=== PATIENT | female | born 1940 | race Two or more races ===

== ENCOUNTER 2024-08-02 18:40 | Inpatient (IN) | payer OTHER ==
[~2024-08-02] VITALS: Ht 154.9 cm; Wt 69.6 kg
--- NOTE | 2024-08-02 18:59 | ECG ---
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
--- NOTE | 2024-08-02 19:04 | ED.PDOC ---
GI ASSESSMENT HPI Comments 83-year-old female who came to emergency room due to a bleed. Patient has been constipated for the past 2-3 weeks, and whenever she defecates, she noted blackish stools. Earlier today, patient vomited blackish emesis. Patient states recently she feels weak, lethargic and fatigued with shortness a breath. She denies any abdominal pain and she denies any history of ulcers. Blood pressure was 102/62 mmHg upon arrival and slightly tachycardic Chief Complaint: GI Bleed Time Seen by MD: 19:03 Primary Care Provider: BARBARA Reviewed Notes: Nurses Notes Allergies: Coded Allergies: NO KNOWN ALLERGIES (Unverified , 03/17/24) Information Source: Patient Mode of Arrival: Ambulatory Timing: Days Duration: Intermittent Prehospital treatment: None Quality: None Vomitus: Coffee Grounds Stool: Black Severity: Moderate Recent: None Recent Hx of: Abdominal Surgery Pain Location: None Associated sign and symptoms: Constipation, Hematemesis, Melena Review of Systems REVIEW OF SYSTEMS: No fever, no chills, or fatigue HEENT: No sore throat, no earache, no congestion, no neck pain. Cardiac: No chest pain. No palpitations. Lungs: No shortness of breath, no cough. GI: Positive nausea, positive vomiting, no diarrhea, no constipation, no abdominal pain, positive dark colored stool : No dysuria, frequency, or urgency. No hematuria. Musculoskeletal: No joint pain , no joint swelling, no extremity edema. Skin: No rash, no itching. Neuro: No headache, no dizziness, positive generalized weakness Vital Signs Vital Signs Date Time Temp Pulse Resp B/P (MAP) Pulse Ox O2 Delivery O2 Flow Rate FiO2 08/02/24 22:40 97.4 105 21 103/46 97.4 08/02/24 19:44 98 08/02/24 19:44 Room Air* 0 21 Physical Exam General: Awake, alert and oriented. No acute distress. Skin: Skin in warm, dry and intact. Appropriate color for ethnicity. HEENT: The head is normocephalic and atraumatic. Conjunctivae are clear without exudates or hemorrhage. Conjunctiva pale. Sclera is non-icteric. EOM are intact. No signs of nystagmus. Eyelids are normal in appearance without swelling or lesions. Neck: The neck is supple with normal range of motion. No JVD. Cardiac: Heart rate and rhythm are normal. No murmurs, gallops, or rubs are auscultated. Respiratory: No signs of respiratory distress. Lung sounds are clear in all lobes bilaterally without rales, rhonchi, or wheezes. Abdominal: Abdomen is soft, non-tender without distention. Bowel sounds are present and normoactive in all four quadrants. Extremities: Upper and lower extremities are atraumatic in appearance without deformity or edema. Neurological: The patient is awake, alert and oriented to person, place, and time with normal speech. Speech is clear. There is no facial asymmetry. Psychiatric: Appropriate mood and affect. Good judgement and insight. Past Medical History PAST MEDICAL HISTORY: HTN Surgical History: Hysterectomy LENS ASSORTER History: Denies all LENS ASSORTER Hx Family History Family History: Reviewed,noncontributory to illness Social History Smoker: Non-Smoker Alcohol: Denies ETOH Use Drugs: Denies Drug Use Lives In: Home EKG EKG : Pulse Rate (adult): 93 Cardiac Rhythm: NSR Comments Ventricular premature complex. No STEMI Was a procedure done? Was a procedure done?: No GI differential Dx Differential Diagnosis: Constipation, Diverticular disease, Gastritis/PUD, Gastroenteritis, GI hemorrhage, UTI, Urolithiasis, Dehydration, Anemia X-Ray, Labs, Meds, VS Vital Signs Date Time Temp Pulse Resp B/P (MAP) Pulse Ox O2 Delivery O2 Flow Rate FiO2 08/02/24 22:40 97.4 105 21 103/46 97.4 08/02/24 19:44 98.7 99 16 100/66 (77) 98 98.7 08/02/24 19:44 Room Air* 0 21 08/02/24 19:04 93 08/02/24 18:58 99 08/02/24 18:51 98.4 112 16 102/62 (75) 97 98.4 Lab Test 08/02/24 19:03 Range/Units White Blood Count 9.3 4.4-10.8 10^3/uL Red Blood Count 1.78 L 4.0-5.20 10^6/uL Hemoglobin 4.1 *L 12.2-16.2 g/dL Hematocrit 13.0 L 36.0-46.0 % Mean Corpuscular Volume 72.9 L 80.0-100.0 fL Mean Corpuscular Hemoglobin 22.8 L 28.0-32.0 pg Mean Corpuscular Hemoglobin Concent 31.3 L 32.0-36.0 g/dL Red Cell Distribution Width 19.2 H 11.8-14.3 % Platelet Count 592 H 140-450 10^3/uL Mean Platelet Volume 6.2 L 6.9-10.8 fL Neutrophils (%) (Auto) 81.9 H 37.0-80.0 % Lymphocytes (%) (Auto) 11.4 10.0-50.0 % Monocytes (%) (Auto) 5.2 0.0-12.0 % Eosinophils (%) (Auto) 0.4 0.0-7.0 % Basophils (%) (Auto) 1.1 0.0-2.0 % Neutrophils # (Auto) 7.7 1.6-8.6 10 ^3/uL Lymphocytes # (Auto) 1.1 0.4-5.4 10 ^3/uL Monocytes # (Auto) 0.5 0-1.3 10 ^3/uL Eosinophils # (Auto) 0 0-0.8 10 ^3/uL Basophils # (Auto) 0.1 0-0.2 10 ^3/uL Nucleated Red Blood Cells 0.1 % Prothrombin Time 10.9 9.3-11.8 sec Prothrombin Time INR 1.03 0.9-1.15 Sodium Level 137 136-145 mmol/L Potassium Level 3.5 3.5-5.1 mmol/L Chloride Level 103 98-107 mmol/L Carbon Dioxide Level 24 20-31 mmol/L Anion Gap 10 5-15 Blood Urea Nitrogen 37 H 9-23 mg/dL Creatinine 0.94 0.550-1.02 mg/dL Glomerular Filtration Rate Calc 60 >90 mL/min BUN/Creatinine Ratio 39.4 H 10.0-20.0 Serum Glucose 115 H 74-106 mg/dL Calcium Level 10.0 8.7-10.4 mg/dL Total Bilirubin 0.2 0.2-1.0 mg/dL Aspartate Amino Transferase (AST) 21 13-40 U/L Alanine Aminotransferase (ALT) 17 7-40 U/L Alkaline Phosphatase 231 H 46-116 U/L Troponin I High Sensitivity 12 </=34 ng/L Total Protein 6.7 5.7-8.2 g/dL Albumin 3.8 3.2-4.8 g/dL Current Medications Medications (Trade) Dose Ordered Sig/Ann Marie Route Start Time Stop Time Status Last Admin Pantoprazole Sodium (Protonix) 40 mg ONCE ONCE IV 08/02/24 19:00 08/02/24 19:01 DC 08/02/24 19:54 : 1940OC: ERROOM / BED: / AGE / SEX: 83 / F ADM STATUS: REG ER SERVICE 51 ORDERING PHYSICIAN: YAAKOV ARTHUR MD PROCEDURE(s): ABPLIV - CT AB PEL WITH IV CON ONLY REASON: Suspected upper GI bleed ORDER NUMBER(s): [id number], ACCESSION NUMBER(s): [id number] Exam: CT CT AB PEL WITH IV CON ONLY History: Suspected upper GI bleed Comparison Study: None Contrast: Type of contrast: Omni 300 Contrast injected: 100 mL Contrast wasted: 0 TECHNIQUE: A digital resource room special education teacher image was obtained. During the uneventful, intravenous administration of contrast material, multislice data acquisition was obtained through the abdomen and pelvis. The data set was subsequently reconstructed into axial images. Images were reviewed on a work station using a combination of axial and multiplanar using a variety of window levels and settings. Radiation Dose Information: CT Dose: CTDI volume is 13.77 mGy. Dose-length product is 726.87 mGy*cm FINDINGS: Lung Bases: No acute or significant lung base finding. Bronchiectasis in both lung bases. Normal heart size. No pleural or pericardial effusion. Liver: The liver is normal in size. No focal lesions. Normal hepatic vascular enhancement. Gallbladder and Biliary Tree: Unremarkable Spleen: Unremarkable Pancreas: The pancreas is normal in appearance without focal lesions or abnormal enhancement. Adrenal Glands: Unremarkable Kidneys: Kidneys demonstrate normal symmetric enhancement without focal lesions, calculi or hydronephrosis. Bladder: Unremarkable Bowel: The stomach is grossly normal in appearance. Small bowel and colon are normal in caliber and distribution. The appendix is not visualized; however, no secondary findings of acute appendicitis identified. Ascites: Absent Lymphadenopathy: No mesenteric, retroperitoneal or periportal lymphadenopathy. Abdominal Wall and Mesentery: Unremarkable. Vasculature: The visualized abdominal aorta is normal in size and caliber. Abd ominal and pelvic vessels demonstrate normal enhancement. Aneurysmal dilatation of the right iliac artery measuring Pelvic Organs: Unremarkable Musculoskeletal: No aggressive focal bony lesions, acute fractures or dislocation. Soft tissues: Unremarkable. IMPRESSION: 1. 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 HS:Y All CT scans at this medical facility are performed using dose modulation techniques as appropriate to a performed exam including the following: Automated exposure control was utilized; adjustment of the MA and/or KV according to patient size; and use of iterative reconstruction technique. Time of 1ST Reevaluation: 18:56 Reevaluation 1ST: Unchanged Patient Education/Counseling: Other (Need for admission) Family Education/Counseling: No Family Present Departure 1 Departure Time of Disposition: 23:54 Impression: Primary Impression: GI bleed Additional Impression: Severe anemia Disposition: ADMITTED INPATIENT Condition: Stable Comments 83-year-old female who presented with coffee-ground emesis found to have severe anemia. Blood transfusion initiated in the emergency department. Patient admitted to hospitalist service for further treatment, evaluation and monitoring. Extensive evaluation was performed in attempt to identify or rule out: (See differential diagnosis section) The following tests were ordered, and results were reviewed by me and discussed with patient: (See diagnostic results section) The following test were independently interpreted by me: EKG I reviewed and agreed with the following test results read by other providers: N/A I reviewed the following notes from the pt's past medical encounters: N/A Additional information was gathered from interviewing the following independent historians: N/A Discussion of management or test interpretation with external physician/other qualified health rn care manager: N/A Addressed an acute or chronic illness that poses a threat to life or bodily function: Severe anemia, gastrointestinal bleeding Decision regarding hospitalization or escalation of hospital level of care: Risk and benefits of admission for further treatment of patient's condition was considered. Due to patient's current clinical condition, high risk of decline and poor outcome if discharged and need for further inpatient management and monitoring, patient will be admitted to the hospital. Discussed with patient. Drug therapy requiring intensive monitoring for toxicity: N/A Parenteral controlled substances: N/A Decision regarding elective major surgery with identified patient or procedure risk factors: N/A Decision regarding emergency major surgery: N/A Decision not to resuscitate or to de-escalate care because of poor prognosis: N/A Diagnosis or treatment significantly limited by social determinants of health: N/A Critical Care Note Critical Care Time?: Yes (35 min-critical care time only) Critical care comment: severe anemia Stability Stability form required: No Heart Score Heart Score: Heart Score Response (Comments) Value History N/A 0 EKG N/A 0 Age N/A 0 Risk Factors N/A 0 Troponin N/A 0 Total 0 I personally scribed for YAAKOV ARTHUR MD ([email or web address]) on 08/02/24 at 19:04. Electronically submitted by Mark Schneider ([employer]). I personally scribed for YAAKOV ARTHUR MD ([email or web address]) on 08/02/24 at 19:38. Electronically submitted by Mark Schneider ([employer]). YAAKOV ARTHUR MD August 02, 2024 19:04
[2024-08-02 19:19] LABS: Basophils # (auto) 0.1 10 ^3/uL (0-0.2); Basophils % (auto) 1.1 % (0.0-2.0); Eosinophils # (auto) 0 10 ^3/uL (0-0.8); Eosinophils % (auto) 0.4 % (0.0-7.0); Lymphocytes # (auto) 1.1 10 ^3/uL (0.4-5.4); Lymphocytes % (auto) 11.4 % (10.0-50.0); Mean Corpuscular Hemoglobin 22.8 pg (28.0-32.0); Mean Corpuscular Hgb Conc. 31.3 g/dL (32.0-36.0); Mean Corpuscular Volume 72.9 fL (80.0-100.0); Monocytes # (auto) 0.5 10 ^3/uL (0-1.3); Monocytes % (auto) 5.2 % (0.0-12.0); Neutrophils # (auto) 7.7 10 ^3/uL (1.6-8.6); Neutrophils % (auto) 81.9 % (37.0-80.0); Nucleated Red Blood Cells % 0.1 %; Platelet Count (auto) 592 10^3/uL (140-450); Red Blood Cells 1.78 10^6/uL (4.0-5.20); Red Cell Distribution Width 19.2 % (11.8-14.3); White Blood Cell 9.3 10^3/uL (4.4-10.8)
[2024-08-02 19:21] LABS: Hemoglobin 4.1 g/dL (12.2-16.2)
[2024-08-02 19:33] LABS: INR 1.03 (0.9-1.15); Prothrombin Time 10.9 sec (9.3-11.8)
[2024-08-02 19:37] LABS: Alanine Aminotransferase 17 U/L (7-40); Albumin 3.8 g/dL (3.2-4.8); Anion Gap 10 (5-15); Aspartate Aminotransferase 21 U/L (13-40); BUN/Creatinine Ratio 39.4 (10.0-20.0); Carbon Dioxide 24 mmol/L (20-31); Chloride 103 mmol/L (98-107); Sodium 137 mmol/L (136-145); Total Protein 6.7 g/dL (5.7-8.2)
[2024-08-02 19:49] LABS: Alkaline Phosphatase 231 U/L (46-116); Bilirubin, Total 0.2 mg/dL (0.2-1.0); Blood Urea Nitrogen 37 mg/dL (9-23); Glucose 115 mg/dL (74-106); Potassium 3.5 mmol/L (3.5-5.1)
[2024-08-02] MEDS: PANTOPRAZOLE 40 MG/10 ML VIAL INJ IV ONE (19:54)
[2024-08-02] MEDS ORDERED: ONDANSETRON HCL 4 MG/2 ML VIAL IV PRN (21:00)
[2024-08-02] MEDS ORDERED: HYDROcodone-ACET 5/325MG TAB PO PRN (21:00)
[2024-08-02] MEDS ORDERED: DOCUSATE SOD 100 MG CAP PO PRN (21:00)
[2024-08-02] MEDS ORDERED: ACETAMINOPHEN 325 MG TAB PO PRN (21:00)
[2024-08-02] MEDS: IOHEXOL 300 MG/ML 100ML BOTTLE IJ ONE (21:18)
--- NOTE | 2024-08-02 22:11 | DVH ---
Exam: CT CT AB PEL WITH IV CON ONLY History: Suspected upper GI bleed Comparison Study: None Contrast: Type of contrast: Omni 300 Contrast injected: 100 mL Contrast wasted: 0 TECHNIQUE: A digital mural painter image was obtained. During the uneventful, intravenous administration of c ontrast material, multislice data acquisition was obtained through the abdomen and pelvis. The data s et was subsequently reconstructed into axial images. Images were reviewed on a work station using a c ombination of axial and multiplanar using a variety of window levels and settings. Radiation Dose Information: CT Dose: CTDI volume is 13.77 mGy. Dose-length product is 726.87 mGy*cm FINDINGS: Lung Bases: No acute or significant lung base finding. Bronchiectasis in both lung bases. Normal hea rt size. No pleural or pericardial effusion. Liver: The liver is normal in size. No focal lesions. Normal hepatic vascular enhancement. Gallbladder and Biliary Tree: Unremarkable Spleen: Unremarkable Pancreas: The pancreas is normal in appearance without focal lesions or abnormal enhancement. Adrenal Glands: Unremarkable Kidneys: Kidneys demonstrate normal symmetric enhancement without focal lesions, calculi or hydroneph rosis. Bladder: Unremarkable Bowel: The stomach is grossly normal in appearance. Small bowel and colon are normal in caliber and d istribution. The appendix is not visualized; however, no secondary findings of acute appendicitis al ntified. Ascites: Absent Lymphadenopathy: No mesenteric, retroperitoneal or periportal lymphadenopathy. Abdominal Wall and Mesentery: Unremarkable. Vasculature: The visualized abdominal aorta is normal in size and caliber. Abdominal and pelvic vess els demonstrate normal enhancement. Aneurysmal dilatation of the right iliac artery measuring Pelvic Organs: Unremarkable Musculoskeletal: No aggressive focal bony lesions, acute fractures or dislocation. Soft tissues: Unremarkable. IMPRESSION: 1. 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 HS:Y All CT scans at this medical facility are performed using dose modulation techniques as appropriate t o a performed exam including the following: Automated exposure control was utilized; adjustment of th e MA and/or KV according to patient size; and use of iterative reconstruction technique.
[2024-08-02 22:40] VITALS: BP 103/46; PULSE 105; RESP 21; TEMP 97.4
--- NOTE | 2024-08-02 22:53 | DVHHP2 ---
History of Present Illness Reason for Visit: Severe anemia History of Present Illness The patient is a 83-year-old female with past medical history of hypertension, hyperlipidemia, and seizure who presented to [facility] ED with complaint of black tarry stool. Patient reports she has been constipated for the past 2-3 weeks, noted blackish stools, vomiting blackish emesis, feeling weak, lethargic, fatigue with shortness of breaths, getting worse today that prompted this visit. Patient was seen and evaluated in the ED, laboratory data shows WBC 9.3, hemoglobin 4.1, hematocrit 13.0, platelets 592, sodium 137, potassium 3.5, BUN 37, creatinine 0.94, glucose 115, troponin 12. 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 Patient will receive 2 units of PRBC, please see medication orders section in the computer. On my assessment, patient denied chest pain, no headache, no dizziness, no diaphoresis, no shortness of breath, no nausea, no vomiting, no fever, no chills. Patient was admitted for further evaluation and medical management. Past Medical History HTN, HLD, pseudo-seizure Past Surgical History Hysterectomy Family History Reviewed, noncontributory to the management of this case. Past Social History The patient lives at home, denies smoking, alcohol or illicit drugs abuse. Review of Systems Constitutional: Yes: Weakness, Other (Fatigue); No: Fever, Chills, Sweats, Malaise Eyes: No: Pain, Vision change, Conjunctivae inflammation, Eyelid inflammation, Other, Redness ENT: No: Ear pain, Ear discharge, Nose pain, Nose discharge, Nose congestion, Mouth pain, Mouth swelling, Throat pain, Throat swelling, Other Respiratory: No: Cough, Dry, Shortness of breath, SOB with excertion, Wheezing, Hemoptysis, Pleuritic Pain, Sputum, Wheezing, Other Cardiovascular: No: Chest Pain, Palpitations, Orthopnea, Paroxysmal Noc. Dyspnea, Edema, Lt Headedness, Other Gastrointestinal: Vomiting; No: Nausea, Abdominal Pain, Diarrhea, Constipation, Melena, Hematochezia, Other Genitourinary: No Dysuria, No Frequency, No Incontinence, No Hematuria, No Retention, No Other Musculoskeletal: No: other, neck pain, shoulder pain, arm pain, back pain, hand pain, leg pain, foot pain Skin: No: Rash, Lesions, Jaundice, Bruising, Other Neurological: No: Weakness, Numbness, Incoordination, Change in speech, Confusion, Seizures, Other Allergies: Coded Allergies: NO KNOWN ALLERGIES (Unverified , 03/17/24) Medications Current Medications Medications Dose Ordered Sig/Ann Marie Route Start Time Stop Time Status Last Admin Dose Admin Pantoprazole Sodium 40 mg BID IV 08/02/24 22:00 Hydralazine HCl 10 mg Q6HP PRN IV 08/02/24 21:00 Atorvastatin Calcium 20 mg HS PO 08/02/24 22:00 Levetiracetam 100 ml @ 400 mls/hr BID IV 08/02/24 22:00 Sodium Chloride 1,000 ml @ 60 mls/hr [id number] IV 08/02/24 21:00 Acetaminophen/ Hydrocodone Bitart 1 tab Q4HP PRN PO 08/02/24 21:00 Ondansetron HCl 4 mg Q4HP PRN IV 08/02/24 21:00 Docusate Sodium 100 mg BIDPRN PRN PO 08/02/24 21:00 Acetaminophen 650 mg Q6HP PRN PO 08/02/24 21:00 Exam Vital Signs Vital Signs Date Time Temp Pulse Resp B/P (MAP) Pulse Ox O2 Delivery O2 Flow Rate FiO2 08/02/24 22:40 97.4 105 21 103/46 97.4 08/02/24 19:44 98 08/02/24 19:44 Room Air* 0 21 General Appearance: Alert, Oriented X3, Cooperative, No acute distress HEENT: Atraumatic, PERRLA, EOMI, Mucous membr. moist/pink Respiratory: Clear to auscultation, Normal air movement Cardiovascular: Regular rate, Normal S1, Normal S2, No murmurs Abdominal: Normal bowel sounds, Soft, No tenderness, No hepatospenomegaly, No masses Extremities: No clubbing, No cyanosis, No edema, Normal pulses, No tenderness/swelling Skin: No rashes, No breakdown, No significant lesion Neuro: Normal speech, Normal tone, Sensation intact, Cranial nerves 3-12 NL, Reflexes 2+, Other (Generalized weakness) Psych/Mental Status: Mental status NL, Mood NL Labs/Xrays Labs Test 08/02/24 19:03 Range/Units White Blood Count 9.3 4.4-10.8 10^3/uL Red Blood Count 1.78 L 4.0-5.20 10^6/uL Hemoglobin 4.1 *L 12.2-16.2 g/dL Hematocrit 13.0 L 36.0-46.0 % Mean Corpuscular Volume 72.9 L 80.0-100.0 fL Mean Corpuscular Hemoglobin 22.8 L 28.0-32.0 pg Mean Corpuscular Hemoglobin Concent 31.3 L 32.0-36.0 g/dL Red Cell Distribution Width 19.2 H 11.8-14.3 % Platelet Count 592 H 140-450 10^3/uL Mean Platelet Volume 6.2 L 6.9-10.8 fL Neutrophils (%) (Auto) 81.9 H 37.0-80.0 % Lymphocytes (%) (Auto) 11.4 10.0-50.0 % Monocytes (%) (Auto) 5.2 0.0-12.0 % Eosinophils (%) (Auto) 0.4 0.0-7.0 % Basophils (%) (Auto) 1.1 0.0-2.0 % Neutrophils # (Auto) 7.7 1.6-8.6 10 ^3/uL Lymphocytes # (Auto) 1.1 0.4-5.4 10 ^3/uL Monocytes # (Auto) 0.5 0-1.3 10 ^3/uL Eosinophils # (Auto) 0 0-0.8 10 ^3/uL Basophils # (Auto) 0.1 0-0.2 10 ^3/uL Nucleated Red Blood Cells 0.1 % Prothrombin Time 10.9 9.3-11.8 sec Prothrombin Time INR 1.03 0.9-1.15 Sodium Level 137 136-145 mmol/L Potassium Level 3.5 3.5-5.1 mmol/L Chloride Level 103 98-107 mmol/L Carbon Dioxide Level 24 20-31 mmol/L Anion Gap 10 5-15 Blood Urea Nitrogen 37 H 9-23 mg/dL Creatinine 0.94 0.550-1.02 mg/dL Glomerular Filtration Rate Calc 60 >90 mL/min BUN/Creatinine Ratio 39.4 H 10.0-20.0 Serum Glucose 115 H 74-106 mg/dL Calcium Level 10.0 8.7-10.4 mg/dL Total Bilirubin 0.2 0.2-1.0 mg/dL Aspartate Amino Transferase (AST) 21 13-40 U/L Alanine Aminotransferase (ALT) 17 7-40 U/L Alkaline Phosphatase 231 H 46-116 U/L Troponin I High Sensitivity 12 </=34 ng/L Total Protein 6.7 5.7-8.2 g/dL Albumin 3.8 3.2-4.8 g/dL PATIENT: RITA LANGLEY ACCT: [id number] UNIT: [id number] : 1940 LOC: ER ROOM / BED: / AGE / SEX: 83 / F ADM STATUS: REG ER SERVICE 51 ORDERING PHYSICIAN: YAAKOV ARTHUR MD PROCEDURE(s): ABPLIV - CT AB PEL WITH IV CON ONLY REASON: Suspected upper GI bleed ORDER NUMBER(s): [id number], ACCESSION NUMBER(s): [id number] Exam: CT CT AB PEL WITH IV CON ONLY History: Suspected upper GI bleed Comparison Study: None Contrast: Type of contrast: Omni 300 Contrast injected: 100 mL Contrast wasted: 0 TECHNIQUE: A digital religion teacher image was obtained. During the uneventful, intravenous administration of contrast material, multislice data acquisition was obtained through the abdomen and pelvis. The data set was subsequently reconstructed into axial images. Images were reviewed on a work station using a combination of axial and multiplanar using a variety of window levels and settings. Radiation Dose Information: CT Dose: CTDI volume is 13.77 mGy. Dose-length product is 726.87 mGy*cm FINDINGS: Lung Bases: No acute or significant lung base finding. Bronchiectasis in both lung bases. Normal heart size. No pleural or pericardial effusion. Liver: The liver is normal in size. No focal lesions. Normal hepatic vascular enhancement. Gallbladder and Biliary Tree: Unremarkable Spleen: Unremarkable Pancreas: The pancreas is normal in appearance without focal lesions or abnormal enhancement. Adrenal Glands: Unremarkable Kidneys: Kidneys demonstrate normal symmetric enhancement without focal lesions, calculi or hydronephrosis. Bladder: Unremarkable Bowel: The stomach is grossly normal in appearance. Small bowel and colon are normal in caliber and distribution. The appendix is not visualized; however, no secondary findings of acute appendicitis identified. Ascites: Absent Lymphadenopathy: No mesenteric, retroperitoneal or periportal lymphadenopathy. Abdominal Wall and Mesentery: Unremarkable. Vasculature: The visualized abdominal aorta is normal in size and caliber. Abdominal and pelvic vessels demonstrate normal enhancement. Aneurysmal dilatation of the right iliac artery measuring Pelvic Organs: Unremarkable Musculoskeletal: No aggressive focal bony lesions, acute fractures or dislocation. Soft tissues: Unremarkable. IMPRESSION: 1. 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 Assessment/Plan Assessment/Plan Severe anemia Gastrointestinal hemorrhage Generalized weakness Plan 1. Admit to telemetry unit 2. Breathing treatment 3. Pain control management 4. Management of fluids and electrolytes 5. Consultation for hospitalist 6. Diagnostic tests abdomen/pelvis CT 7. DVT prophylaxis-on SCDs 8. Repeat labs CBC, CMP in a.m. 9. Continue with current medical management 10. Treatment plan discussed with patient and RN. Patient verbalized unders tanding. Plan discussed with: Patient, Other (RN) My Orders Orders - REYNA TUCKER DNP Procedure Category Date Status Time * Gi Dvh Box Coverer Hand CONS 08/02/24 Transmitted 20:50 Pantoprazole PHA 08/02/24 In Process (Protonix) 22:00 Hydralazine Injection PHA 08/02/24 In Process (Apresoline Inject 21:00 Atorvastatin (Lipitor) PHA 08/02/24 In Process 22:00 Levetiracetam 500 PHA 08/02/24 In Process Mg/100ml (Levetiraceta 22:00 Allergies [place] 08/02/24 In Process 20:50 Code Status CODE 08/02/24 Transmitted 20:50 Sodium Chloride 0.9% PHA 08/02/24 In Process 21:00 Oxygen Per Hour RT 08/02/24 Transmitted 20:50 Hydrocodone-Acet PHA 08/02/24 In Process 5/325mg Tab ([place] 21:00 Ondansetron Hcl PHA 08/02/24 In Process (Zofran) 21:00 Docusate Sodium PHA 08/02/24 In Process Capsule (Colace 21:00 Fall Risk Precautions [place] 08/02/[address] 20:50 Complete Blood Count LAB 08/03/24 Verified 04:00 Comprehensive LAB 08/03/24 Verified Metabolic Panel 04:00 Cardiac DIET 08/03/24 Transmitted Diet-2gna,Lofat,Lochol Breakfast Condition: Serious [place] 08/02/24 In Process 20:50 Acetaminophen Tablet PHA 08/02/24 In Process (Tylenol Tablet) 21:00 Maintain Bed Rest [facility] 08/02/24 In Process 20:50 Sequential [facility] 08/02/24 In Process Compression Device Admit ADMIT 08/02/24 Verified 22:52 Nitroglycerin [facility] 08/02/24 Verified Sublingual (Ntrostat 23:00 Morphine Sulfate [facility] 08/02/24 Verified Injection 23:00 Notify Md Of Changes [facility] 08/02/24 Verified From Base 22:52 Burr Sander For [facility] 08/02/24 Verified 24 Hours 22:52 Emergency Dysrhythmia [facility] 08/02/24 Verified Protocol 22:52 Rhythm Strips Once [facility] 08/02/24 Verified Every Shift 22:52 Oxygen By Nasal RT 08/02/24 Verified Cannula 22:52 Problem List: (1) Severe anemia (2) Gastrointestinal hemorrhage (3) Generalized weakness Date of Service: August 02, 2024 Billing Provider: REYNA TUCKER DNP Common Visit Codes: [id number] INP/OBS CARE (HIGH) REYNA TUCKER DNP August 02, 2024 22:53
[2024-08-02 23:00] VITALS: RESP 18; O2SAT 98
[2024-08-02] MEDS ORDERED: NITROGLYCERIN 0.4 MG SL TAB SL PRN (23:00)
[2024-08-02] MEDS ORDERED: MORPHINE SULFATE INJ 2 MG/ml SYRG IV PRN (23:00)
[2024-08-02 23:05] VITALS: BP 112/47; PULSE 100; RESP 17; TEMP 98.5
[2024-08-03] VITALS (14 sets, daily range): BP systolic 105–124; BP diastolic 46–64; PULSE 80–103; RESP 16–20; TEMP 97.6–98.2; O2SAT 92–99
[2024-08-03] MEDS: ATORVASTATIN 20 MG TAB PO SCH (02:12)
[2024-08-03] MEDS: PANTOPRAZOLE 40 MG/10 ML VIAL INJ IV SCH (02:12)
[2024-08-03] MEDS: levETIRAcetam 500 mg/100ml 100 ML IV SCH (02:20)
[2024-08-03] MEDS ORDERED: LEVE500T3 PO (02:56)
[2024-08-03] MEDS ORDERED: LOSA-535 PO (02:56)
[2024-08-03] MEDS ORDERED: FURO20TA4 PO (02:56)
[2024-08-03] MEDS ORDERED: ATOR20TA50 PO (02:56)
[2024-08-03] MEDS: SODIUM CHLORIDE 0.9% 1,000 ML IV SCH (06:07)
[2024-08-03 08:01] LABS: Basophils # (auto) 0.1 10 ^3/uL (0-0.2); Basophils % (auto) 0.6 % (0.0-2.0); Eosinophils # (auto) 0.2 10 ^3/uL (0-0.8); Eosinophils % (auto) 1.6 % (0.0-7.0); Hematocrit 21.8 % (36.0-46.0); Hemoglobin 7.1 g/dL (12.2-16.2); Lymphocytes # (auto) 1.2 10 ^3/uL (0.4-5.4); Lymphocytes % (auto) 12.2 % (10.0-50.0); Mean Corpuscular Hemoglobin 26.1 pg (28.0-32.0); Mean Corpuscular Hgb Conc. 32.8 g/dL (32.0-36.0); Mean Corpuscular Volume 79.6 fL (80.0-100.0); Monocytes # (auto) 0.9 10 ^3/uL (0-1.3); Monocytes % (auto) 9.4 % (0.0-12.0); Neutrophils # (auto) 7.4 10 ^3/uL (1.6-8.6); Neutrophils % (auto) 76.2 % (37.0-80.0); Nucleated Red Blood Cells % 0.1 %; Platelet Count (auto) 455 10^3/uL (140-450); Red Blood Cells 2.74 10^6/uL (4.0-5.20); Red Cell Distribution Width 20.2 % (11.8-14.3); White Blood Cell 9.7 10^3/uL (4.4-10.8)
[2024-08-03 08:23] LABS: Alanine Aminotransferase 15 U/L (7-40); Albumin 3.6 g/dL (3.2-4.8); Anion Gap 11 (5-15); Aspartate Aminotransferase 18 U/L (13-40); BUN/Creatinine Ratio 35.9 (10.0-20.0); Calcium 9.8 mg/dL (8.7-10.4); Carbon Dioxide 24 mmol/L (20-31); Chloride 106 mmol/L (98-107); Sodium 141 mmol/L (136-145); Total Protein 6.3 g/dL (5.7-8.2)
[2024-08-03 08:30] LABS: Alkaline Phosphatase 223 U/L (46-116); Bilirubin, Total 0.3 mg/dL (0.2-1.0); Blood Urea Nitrogen 28 mg/dL (9-23); Glucose 109 mg/dL (74-106); Potassium 3.1 mmol/L (3.5-5.1)
[2024-08-03] MEDS ORDERED: POTASSIUM CHL 20MEQ/100ML 100 ML IV ONE (09:15)
--- NOTE | 2024-08-03 10:28 | DVHPN2 ---
Subjective 83-year-old female with a history of hypertension and hypercholesterolemia came with hematemesis and black stools for about a week with no abdominal pain Her hemoglobin on admission was 4.1, she was given 2 units of packed RBCs which elevated her hemoglobin today to 7.1 Changes from previous H/P or p: Changes Eyes: No Pain, No Vision change, No Conjunctivae inflammation, No Eyelid inflammation, No Other, No Redness ENT: No Ear pain, No Ear discharge, No Nose pain, No Nose discharge, No Nose congestion, No Mouth pain, No Mouth swelling, No Throat pain, No Throat swelling, No Other Cardiovascular: No Chest Pain, No Palpitations, No Orthopnea, No Paroxysmal Noc. Dyspnea, No Edema, No Lt Headedness, No Other Respiratory: No Cough, No Dry, No Shortness of breath, No SOB with excertion, No Wheezing, No Hemoptysis, No Pleuritic Pain, No Sputum, No Other Gastrointestinal: No Nausea; Vomiting; No Abdominal Pain, No Diarrhea, No Constipation, No Melena, No Hematochezia, No Other Genitourinary: No Dysuria, No Frequency, No Incontinence, No Hematuria, No Retention, No Other Musculoskeletal: No other, No neck pain, No shoulder pain, No arm pain, No back pain, No hand pain, No leg pain, No foot pain Skin: No Rash, No Lesions, No Jaundice, No Bruising, No Other Objective Vitals Vital Signs Date Time Temp Pulse Resp B/P (MAP) Pulse Ox O2 Delivery O2 Flow Rate FiO2 08/03/24 09:00 98.0 97 16 105/51 (69) 95 98.0 08/03/24 01:34 Room Air* 0 21 Intake/Output Intake and Output 08/03/24 07:00 Intake Total 1800 ml Output Total 500 ml Balance 1300 ml Intake Oral 0 ml Blood Product 900 ml Other 900 ml Output Urine Total 500 ml # Voids 1 General Appearance: Alert, Oriented X3, Cooperative, No acute distress Lungs: Clear to auscultation, Normal air movement Cardiovascular: Regular rate, Normal S1, Normal S2 Abdomen: Normal bowel sounds, Soft, No tenderness Extremities: No edema Medications Current Medications Medications Dose Ordered Sig/Ann Marie Route Start Time Stop Time Status Last Admin Dose Admin Pantoprazole Sodium 40 mg BID IV 08/02/24 22:00 08/03/24 09:23 40 MG Hydralazine HCl 10 mg Q6HP PRN IV 08/02/24 21:00 Atorvastatin Calcium 20 mg HS PO 08/02/24 22:00 08/03/24 02:12 20 MG Levetiracetam 100 ml @ 400 mls/hr BID IV 08/02/24 22:00 08/03/24 02:20 400 MLS/HR Sodium Chloride 1,000 ml @ 60 mls/hr [id number] IV 08/02/24 21:00 08/03/24 06:07 60 MLS/HR Acetaminophen/ Hydrocodone Bitart 1 tab Q4HP PRN PO 08/02/24 21:00 Ondansetron HCl 4 mg Q4HP PRN IV 08/02/24 21:00 Docusate Sodium 100 mg BIDPRN PRN PO 08/02/24 21:00 Acetaminophen 650 mg Q6HP PRN PO 08/02/24 21:00 Nitroglycerin 0.4 mg Q5MINP PRN SL 08/02/24 23:00 Morphine Sulfate 2 mg Q30M PRN IV 08/02/24 23:00 Sucralfate 1 gm QID@0600,1130,1700,2200 PO 08/03/24 11:30 Laboratory Results Laboratory Tests 08/03/24 07:34 Chemistry Test 08/02/24 19:03 08/03/24 07:34 Albumin 3.8 g/dL (3.2-4.8) 3.6 g/dL (3.2-4.8) Calcium Level 10.0 mg/dL (8.7-10.4) 9.8 mg/dL (8.7-10.4) Total Protein 6.7 g/dL (5.7-8.2) 6.3 g/dL (5.7-8.2) Coagulation Test 08/02/24 19:03 Prothrombin Time 10.9 sec (9.3-11.8) Prothrombin Time INR 1.03 (0.9-1.15) LFT Test 08/02/24 19:03 08/03/24 07:34 Alanine Aminotransferase (ALT) 17 U/L (7-40) 15 U/L (7-40) Alkaline Phosphatase 231 U/L (46-116) H 223 U/L (46-116) H Aspartate Amino Transferase (AST) 21 U/L (13-40) 18 U/L (13-40) Total Bilirubin 0.2 mg/dL (0.2-1.0) 0.3 mg/dL (0.2-1.0) Assessment/Plan Assessment/Plan Upper GI bleed Acute anemia due to blood loss Hypokalemia Hypertension Dyslipidemia Possible history of seizures Plan Patient is status post transfusion 2 units RBCs Clear liquid diet GI consult IV Protonix Sucralfate p.o. Monitor closely IV fluids Monitor closely and the rest of the management will depend on the hospital course Full code Advance directives discussed for 20 minutes Not stable for transfer Plan discussed with: Patient My Orders Orders - KARMA BERKOWITZ MD Procedure Category Date Status Time Potassium Chl PHA 08/03/24 In Process 20meq/50ml (Potassium 09:30 Clear Liq Diet DIET 08/03/24 Transmitted Lunch Date of Service: August 03, 2024 Billing Provider: KARMA BERKOWITZ MD Common Visit Codes: [id number] INP/OBS CARE(HIGH) Secondary Visit Codes: [id number] CARE PLAN 30 MINUTES KARMA BERKOWITZ MD August 03, 2024 10:28
[2024-08-03] MEDS: POTASSIUM CHL 20MEQ/50ML 50 ML IV ONE (10:47)
[2024-08-03] MEDS: SUCRALFATE 1 GM/10 ML ORAL SUSP PO SCH (11:01)
--- NOTE | 2024-08-03 14:32 | DVHINCON2 ---
Date of service: August 03, 2024 Referring Physician Jose Rodríguez Reason for Consultation UGI bleed with melena History of Present Illness The patient is a 83-year-old female with who presented to [facility] ED with complaint of black tarry stool. Patient reports she has been constipated for the past 2-3 weeks, noted blackish stools, vomiting blackish emesis, feeling weak, lethargic, fatigue with shortness of breaths, getting worse that prompted this vist. Patient was found to have severe anemia with a hemoglobin of 4.1. She has received 2 units PRBC and repeat hemoglobin this morning was 7.1. 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 Patient Was seen at bedside this morning. She is feeling better. She did have one melanotic stool today. Patient did have a regular diet this morning. She denied the use any use of NSAIDs and initially said she was taking aspirin but then changed it to Tylenol. No prior endoscopy Past Medical History Past Medical History HTN, HLD, pseudo-seizure Past Surgical History Past Surgical History Hysterectomy Family History: Diabetes mellitus G8 FATHER Allergies: Coded Allergies: NO KNOWN ALLERGIES (Unverified , 03/17/24) Home Meds Reported Medications Levetiracetam (Levetiracetam) 500 Mg Tab, 1 TAB PO BID 08/03/24 Losartan Potassium (Losartan Potassium) 100 Mg Tab, 1 TAB PO DAILY 08/03/24 Furosemide (Furosemide) 20 Mg Tab, 1 TAB PO DAILY 08/03/24 Atorvastatin Calcium (ATORVASTATIN CALCIUM) 20 Mg Tab, 1 TAB PO DAILY 08/03/24 Current Medications Current Medications Medications (Trade) Dose Ordered Sig/Ann Marie Route PRN Reason Start Time Stop Time Status Last Admin Pantoprazole Sodium (Protonix) 40 mg BID IV 08/02/24 22:00 08/03/24 09:23 Hydralazine HCl (Apresoline Injection) 10 mg Q6HP PRN IV SBP>150 08/02/24 21:00 Atorvastatin Calcium (Lipitor) 20 mg HS PO 08/02/24 22:00 08/03/24 02:12 Levetiracetam 100 ml @ 400 mls/hr BID IV 08/02/24 22:00 08/03/24 02:20 Sodium Chloride 1,000 ml @ 60 mls/hr [id number] IV 08/02/24 21:00 08/03/24 06:07 Acetaminophen/ Hydrocodone Bitart ([place] 5/325MG Tab) 1 tab Q4HP PRN PO MODERATE PAIN (4-6 PAIN SCALE) 08/02/24 21:00 Ondansetron HCl (Zofran) 4 mg Q4HP PRN IV NAUSEA / VOMITING 08/02/24 21:00 Docusate Sodium (Colace Capsule) 100 mg BIDPRN PRN PO FOR CONSTIPATION 08/02/24 21:00 Acetaminophen (Tylenol Tablet) 650 mg Q6HP PRN PO PAIN SCALE 1-3 OR TEMP>100.4 08/02/24 21:00 Nitroglycerin (Ntrostat Sublingual) 0.4 mg Q5MINP PRN SL FOR CHEST PAIN 08/02/24 23:00 Morphine Sulfate 2 mg Q30M PRN IV FOR CHEST PAIN 08/02/24 23:00 Sucralfate (Carafate Susp) 1 gm QID@0600,1130,1700,2200 PO 08/03/24 11:30 08/03/24 11:01 Vital Signs Vital Signs Date Time Temp Pulse Resp B/P (MAP) Pulse Ox O2 Delivery O2 Flow Rate FiO2 08/03/24 09:00 98.0 97 16 105/51 (69) 95 98.0 08/03/24 01:34 Room Air* 0 21 Physical Exam General Appearance: Alert, Oriented X3, Cooperative, No acute distress HEENT: Atraumatic, PERRLA, EOMI, Mucous membr. moist/pink Respiratory: Clear to auscultation, Normal air movement Cardiovascular: Regular rate, Normal S1, Normal S2, No murmurs Abdominal: Normal bowel sounds, Soft, No tenderness, No hepatospenomegaly, No masses Extremities: No clubbing, No cyanosis, No edema, Normal pulses, No tenderness/swelling Skin: No rashes, No breakdown, No significant lesion Neuro: Normal speech, Normal tone, Sensation intact, Cranial nerves 3-12 NL, Reflexes 2+, Other (Generalized weakness) Psych/Mental Status: Mental status NL, Mood NL Labs/Diagnostic Data Labs Test 08/03/24 07:34 08/02/24 19:03 Range/Units White Blood Count 9.7 4.4-10.8 10^3/uL Red Blood Count 2.74 L 4.0-5.20 10^6/uL Hemoglobin 7.1 #L 12.2-16.2 g/dL Hematocrit 21.8 #L 36.0-46.0 % Mean Corpuscular Volume 79.6 #L 80.0-100.0 fL Mean Corpuscular Hemoglobin 26.1 L 28.0-32.0 pg Mean Corpuscular Hemoglobin Concent 32.8 32.0-36.0 g/dL Red Cell Distribution Width 20.2 H 11.8-14.3 % Platelet Count 455 H 140-450 10^3/uL Mean Platelet Volume 6.2 L 6.9-10.8 fL Neutrophils (%) (Auto) 76.2 37.0-80.0 % Lymphocytes (%) (Auto) 12.2 10.0-50.0 % Monocytes (%) (Auto) 9.4 0.0-12.0 % Eosinophils (%) (Auto) 1.6 0.0-7.0 % Basophils (%) (Auto) 0.6 0.0-2.0 % Neutrophils # (Auto) 7.4 1.6-8.6 10 ^3/uL Lymphocytes # (Auto) 1.2 0.4-5.4 10 ^3/uL Monocytes # (Auto) 0.9 0-1.3 10 ^3/uL Eosinophils # (Auto) 0.2 0-0.8 10 ^3/uL Basophils # (Auto) 0.1 0-0.2 10 ^3/uL Nucleated Red Blood Cells 0.1 % Sodium Level 141 136-145 mmol/L Potassium Level 3.1 L 3.5-5.1 mmol/L Chloride Level 106 98-107 mmol/L Carbon Dioxide Level 24 20-31 mmol/L Anion Gap 11 5-15 Blood Urea Nitrogen 28 H 9-23 mg/dL Creatinine 0.78 0.550-1.02 mg/dL Glomerular Filtration Rate Calc 75 >90 mL/min BUN/Creatinine Ratio 35.9 H 10.0-20.0 Serum Glucose 109 H 74-106 mg/dL Calcium Level 9.8 8.7-10.4 mg/dL Total Bilirubin 0.3 0.2-1.0 mg/dL Aspartate Amino Transferase (AST) 18 13-40 U/L Alanine Aminotransferase (ALT) 15 7-40 U/L Alkaline Phosphatase 223 H 46-116 U/L Total Protein 6.3 5.7-8.2 g/dL Albumin 3.6 3.2-4.8 g/dL Prothrombin Time 10.9 9.3-11.8 sec Prothrombin Time INR 1.03 0.9-1.15 Troponin I High Sensitivity 12 </=34 ng/L CT SCAN ABD PELVIS IMPRESSION: 1. 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 HS:Y Problems(with codes): (1) Generalized weakness (2) Gastrointestinal hemorrhage (3) Severe anemia (4) GI bleed (5) Musculoskeletal chest pain (6) Chest pain Plan/Recommendation PLAN Clear liquid diet Protonix IV q.12 hours 40 mg Carafate 1 g p.o. 4 times a day NPO after midnight I will tentatively plan an endoscopy for 08/04/2024 Monitor serial H&H Discontinue aspirin NSAIDs smoking alcohol Plan discussed with: Patient, Other (Nurse) ZIA BRADY MD August 03, 2024 14:32
--- NOTE | 2024-08-03 22:25 | DVH ---
CHEST RADIOGRAPH Indication: preop Technique: Single frontal view of the chest was obtained Comparison: XY CHEST PORTABLE on DOS: 03/17/24 FINDINGS: Lines and Tubes: None Lungs: No focal consolidation. Pleura: No effusion. No pneumothorax. Cardiomediastinal contours: Unremarkable Bones: No acute osseous abnormality. IMPRESSION: 1. Mild pulmonary vascular congestion. HS:Y
[2024-08-04] VITALS (9 sets, daily range): BP systolic 114–135; BP diastolic 48–78; PULSE 85–91; RESP 14–20; TEMP 97.5–98; O2SAT 94–100
[2024-08-04 07:02] LABS: Basophils # (auto) 0.1 10 ^3/uL (0-0.2); Eosinophils # (auto) 0.4 10 ^3/uL (0-0.8); Hemoglobin 7.1 g/dL (12.2-16.2); Monocytes # (auto) 0.8 10 ^3/uL (0-1.3)
[2024-08-04 07:05] LABS: Basophils % (auto) 1.6 % (0.0-2.0); Eosinophils % (auto) 4.9 % (0.0-7.0); Lymphocytes % (auto) 13.1 % (10.0-50.0); Mean Corpuscular Hemoglobin 25.8 pg (28.0-32.0); Mean Corpuscular Hgb Conc. 32.2 g/dL (32.0-36.0); Mean Corpuscular Volume 80.2 fL (80.0-100.0); Monocytes % (auto) 10.2 % (0.0-12.0); Neutrophils # (auto) 5.4 10 ^3/uL (1.6-8.6); Neutrophils % (auto) 70.2 % (37.0-80.0); Nucleated Red Blood Cells % 0.5 %; Platelet Count (auto) 476 10^3/uL (140-450); Red Blood Cells 2.75 10^6/uL (4.0-5.20); White Blood Cell 7.7 10^3/uL (4.4-10.8)
[2024-08-04 07:06] LABS: Red Cell Distribution Width 20.3 % (11.8-14.3)
[2024-08-04 07:13] LABS: INR 1.03 (0.9-1.15); Partial Thromboplastin Time 23.6 SEC (24.5-34.5); Prothrombin Time 10.9 sec (9.3-11.8)
[2024-08-04 07:26] LABS: Alanine Aminotransferase 14 U/L (7-40); Albumin 3.5 g/dL (3.2-4.8); Anion Gap 9 (5-15); Aspartate Aminotransferase 22 U/L (13-40); BUN/Creatinine Ratio 23.6 (10.0-20.0); Blood Urea Nitrogen 13 mg/dL (9-23); Calcium 9.8 mg/dL (8.7-10.4); Carbon Dioxide 27 mmol/L (20-31); Chloride 107 mmol/L (98-107); Glucose 102 mg/dL (74-106); LDL Cholesterol 27 mg/dL (< 100); Sodium 143 mmol/L (136-145); Total Protein 6.3 g/dL (5.7-8.2); Triglycerides 81 mg/dL (< 150)
[2024-08-04 07:27] LABS: Bilirubin, Total 0.4 mg/dL (0.2-1.0); Cholesterol 85 mg/dL (< 200)
[2024-08-04 07:29] LABS: Alkaline Phosphatase 243 U/L (46-116); HDL Cholesterol 39 mg/dL (40-59); Magnesium 1.5 mg/dL (1.6-2.6); Potassium 3.2 mmol/L (3.5-5.1)
[2024-08-04 07:57] LABS: Anisocytosis Slight; Platelet Estimate Increased
[2024-08-04] MEDS: MAGNESIUM SULFATE 1GM/100ML 100 ML IV SCH (09:53)
[2024-08-04] MEDS ORDERED: MIDAZOLAM HCL 2MG/2ML 2ml VIAL (1mg/ml) ONE (10:54)
[2024-08-04] MEDS ORDERED: fentaNYL CITRATE 100 MCG/2 ML VL ONE (10:54)
[2024-08-04] MEDS ORDERED: PROPOFOL 10 MG/ML 20 ML IV ONE (11:04)
[2024-08-04] MEDS ORDERED: DexAMETHasone SOD PHOS 10MG/1ML VIAL INJ ONE (11:04)
--- NOTE | 2024-08-04 11:34 | DVHPN2 ---
Subjective No new complaints No bleeding Magnesium and potassium are low Scheduled for EGD today Changes from previous H/P or p: Changes Eyes: No Pain, No Vision change, No Conjunctivae inflammation, No Eyelid inflammation, No Other, No Redness ENT: No Ear pain, No Ear discharge, No Nose pain, No Nose discharge, No Nose congestion, No Mouth pain, No Mouth swelling, No Throat pain, No Throat swelling, No Other Cardiovascular: No Chest Pain, No Palpitations, No Orthopnea, No Paroxysmal Noc. Dyspnea, No Edema, No Lt Headedness, No Other Respiratory: No Cough, No Dry, No Shortness of breath, No SOB with excertion, No Wheezing, No Hemoptysis, No Pleuritic Pain, No Sputum, No Other Gastrointestinal: No Nausea; Vomiting; No Abdominal Pain, No Diarrhea, No Constipation, No Melena, No Hematochezia, No Other Genitourinary: No Dysuria, No Frequency, No Incontinence, No Hematuria, No Retention, No Other Musculoskeletal: No other, No neck pain, No shoulder pain, No arm pain, No back pain, No hand pain, No leg pain, No foot pain Skin: No Rash, No Lesions, No Jaundice, No Bruising, No Other Objective Vitals Vital Signs Date Time Temp Pulse Resp B/P (MAP) Pulse Ox O2 Delivery O2 Flow Rate FiO2 08/04/24 09:00 97.7 85 18 121/48 (72) 95 97.7 08/04/24 07:30 Room Air* 0 21 Intake/Output Intake and Output 08/04/24 07:00 Intake Total 663 ml Output Total 850 ml Balance -187 ml Intake Oral 663 ml Output Urine Total 850 ml # Voids 2 # Bowel Movements 1 General Appearance: Alert, Oriented X3, Cooperative, No acute distress Lungs: Clear to auscultation, Normal air movement Cardiovascular: Regular rate, Normal S1, Normal S2 Abdomen: Normal bowel sounds, Soft, No tenderness Extremities: No edema Medications Current Medications Medications Dose Ordered Sig/Ann Marie Route Start Time Stop Time Status Last Admin Dose Admin Pantoprazole Sodium 40 mg BID IV 08/02/24 22:00 08/04/24 09:53 40 MG Hydralazine HCl 10 mg Q6HP PRN IV 08/02/24 21:00 Atorvastatin Calcium 20 mg HS PO 08/02/24 22:00 08/03/24 23:25 20 MG Levetiracetam 100 ml @ 400 mls/hr BID IV 08/02/24 22:00 08/03/24 23:25 400 MLS/HR Sodium Chloride 1,000 ml @ 60 mls/hr [id number] IV 08/02/24 21:00 08/04/24 05:39 60 MLS/HR Acetaminophen/ Hydrocodone Bitart 1 tab Q4HP PRN PO 08/02/24 21:00 Ondansetron HCl 4 mg Q4HP PRN IV 08/02/24 21:00 Docusate Sodium 100 mg BIDPRN PRN PO 08/02/24 21:00 Acetaminophen 650 mg Q6HP PRN PO 08/02/24 21:00 Nitroglycerin 0.4 mg Q5MINP PRN SL 08/02/24 23:00 Morphine Sulfate 2 mg Q30M PRN IV 08/02/24 23:00 Sucralfate 1 gm QID@0600,1130,1700,2200 PO 08/03/24 11:30 08/04/24 05:36 1 GM Magnesium Sulfate/ Dextrose 100 ml @ 100 mls/hr Q1HR IV 08/04/24 10:00 08/04/24 11:59 08/04/24 09:53 100 MLS/HR Laboratory Results Laboratory Tests 08/04/24 05:54 Chemistry Test 08/04/24 05:54 Albumin 3.5 g/dL (3.2-4.8) Calcium Level 9.8 mg/dL (8.7-10.4) Magnesium Level 1.5 mg/dL (1.6-2.6) L Total Protein 6.3 g/dL (5.7-8.2) Coagulation Test 08/04/24 05:54 Prothrombin Time 10.9 sec (9.3-11.8) Prothrombin Time INR 1.03 (0.9-1.15) Activated Partial Thromboplast Time 23.6 SEC (24.5-34.5) L Lipid panel Test 08/04/24 05:54 Cholesterol Level 85 mg/dL (< 200) HDL Cholesterol 39 mg/dL (40-59) L Triglycerides Level 81 mg/dL (< 150) LFT Test 08/04/24 05:54 Alanine Aminotransferase (ALT) 14 U/L (7-40) Alkaline Phosphatase 243 U/L (46-116) H Aspartate Amino Transferase (AST) 22 U/L (13-40) Total Bilirubin 0.4 mg/dL (0.2-1.0) HgA1c, TSH Test 08/04/24 05:54 Thyroid Stimulating Hormone (TSH) 0.29 uIU/mL (0.55-4.78) L Assessment/Plan Assessment/Plan Upper GI bleed Acute anemia due to blood loss Hypokalemia Hypertension Dyslipidemia Possible history of seizures Plan Patient is status post transfusion 2 units RBCs Clear liquid diet GI consult IV Protonix Sucralfate p.o. Monitor closely IV fluids Monitor closely and the rest of the management will depend on the hospital course Full code Advance directives discussed for 20 minutes Not stable for transfer 08/04/2024: Hemoglobin is stable at 7.1 , monitor Hypokalemia: Potassium 3.2 , replace IV Hypomagnesemia: Magnesium 1.5, replace IV GI bleed: EGD today Seizures: Continue Keppra Monitor closely Not stable for transfer Plan discussed with: Patient My Orders Orders - KARMA BERKOWITZ MD Procedure Category Date Status Time Potassium Chl PHA 08/04/24 In Process 20meq/50ml (Potassium 09:45 Magnesium Sulfate PHA 08/04/24 In Process 1gm/100ml 10:00 Date of Service: August 04, 2024 Billing Provider: KARMA BERKOWITZ MD Common Visit Codes: [id number] INP/OBS CARE(HIGH) KARMA BERKOWITZ MD August 04, 2024 11:34
--- NOTE | 2024-08-04 11:41 | DVHOP2 ---
Operative Report DATE OF OPERATION: 08/04/24 PROCEDURE: Upper Endoscopy with biopsy. PREOPERATIVE INDICATION: The patient is a 83 -year-old female undergoing endoscopy for history of melena and anemia POSTOPERATIVE DIAGNOSES: 1. Patient had a large 5-6 cm ulcerated area on the angularis and distal body of the stomach with necrosis and raised edges which failed hard and firm and was suspicious for a gastric malignancy 2. Mild gastroparesis with retained gastric food contents and mild and 3. Mild angulation and fixation of the pyloric duodenal channel otherwise completely endoscopic examination up to the 2nd and 3rd part of the duodenum PROCEDURE PERFORMED BY: Zia Moran GI NURSE: Una SCOPE: Olympus videoendoscope. ASA CLASS: 3. PREOPERATIVE MEDICATIONS: Mac Dr. Bina muniz PROCEDURE IN DETAIL: After obtaining an informed consent, the patient was placed on left lateral decubitus position. The patient was then sedated with the above medications. A bite block was placed between his teeth. The endoscope was then passed through the oropharynx, into the esophagus, and through the stomach and pylorus up to the second and third part of the duodenum. The endoscope was then withdrawn. The 2nd and 3rd part of the duodenum and the duodenal bulb were normal. Duodenal biopsies were obtained The pre-pyloric area and showed mild gastritis. On retroflexion and straight on view the patient had a large partially circumferential ulcerated area on the angularis and the distal body of the stomach with raised edges and central ulceration and necrosis from which multiple biopsies were obtained This was suspicious for a malignancy. On retroflexion and straight on view the patient also had moderate gastroparesis with retained gastric food contents. The endoscope was then withdrawn into the distal esophagus where the patient had a slightly irregular squamocolumnar junction and less than 1 cm hiatal hernia The remaining distal and proximal esophagus and oropharynx were unremarkable The patient tolerated the procedure well without difficulty. COMPLICATIONS : None SPECIMENS: Duodenal biopsies Gastric ulcerated mass biopsies DISPOSITION: Transfer back to the floor Stable PLAN: 1. Await for biopsy result 2. Will place pt on Protonix 40 mg bid IV 3. Carafate suspension 1 g p.o. 4 times a day 4. Resume full liquid diet 5. Reglan 5 mg IV q.8 hours ZIA MORAN MD August 04, 2024 11:41
[2024-08-04] MEDS: POTASSIUM CHL 20MEQ/50ML 50 ML IV ONE (16:26)
[2024-08-05] VITALS (9 sets, daily range): BP systolic 112–177; BP diastolic 56–83; PULSE 77–91; RESP 16–20; TEMP 97.3–97.8; O2SAT 95–99
[2024-08-05 06:53] LABS: Basophils # (auto) 0 10 ^3/uL (0-0.2); Eosinophils # (auto) 0 10 ^3/uL (0-0.8); Hemoglobin 7.2 g/dL (12.2-16.2); Lymphocytes # (auto) 0.7 10 ^3/uL (0.4-5.4); Monocytes # (auto) 0.2 10 ^3/uL (0-1.3); Neutrophils # (auto) 2.4 10 ^3/uL (1.6-8.6); Nucleated Red Blood Cells % 1.2 %; White Blood Cell 3.3 10^3/uL (4.4-10.8)
[2024-08-05 06:57] LABS: Basophils % (auto) 0.2 % (0.0-2.0); Eosinophils % (auto) 0.2 % (0.0-7.0); Hematocrit 22.6 % (36.0-46.0); Lymphocytes % (auto) 21.6 % (10.0-50.0); Mean Corpuscular Volume 81.1 fL (80.0-100.0); Platelet Count (auto) 412 10^3/uL (140-450); Red Blood Cells 2.79 10^6/uL (4.0-5.20)
[2024-08-05 06:58] LABS: Alanine Aminotransferase 16 U/L (7-40); Albumin 3.5 g/dL (3.2-4.8); Anion Gap 10 (5-15); Aspartate Aminotransferase 15 U/L (13-40); BUN/Creatinine Ratio 14.9 (10.0-20.0); Carbon Dioxide 23 mmol/L (20-31); Magnesium 1.9 mg/dL (1.6-2.6); Potassium 3.8 mmol/L (3.5-5.1); Sodium 140 mmol/L (136-145); Total Protein 6.3 g/dL (5.7-8.2)
[2024-08-05 06:59] LABS: Alkaline Phosphatase 218 U/L (46-116); Bilirubin, Total 0.3 mg/dL (0.2-1.0); Blood Urea Nitrogen 7 mg/dL (9-23); Chloride 107 mmol/L (98-107); Glucose 136 mg/dL (74-106)
--- NOTE | 2024-08-05 10:50 | DVHPN2 ---
Subjective No complaints No bleeding Hemoglobin 7.2 EGD was done yesterday shows a large 5-6 cm ulcerated area on the angularis and distal body of the stomach with necrosis and raised edges raising the possibility of gastric malignancy Changes from previous H/P or p: Changes Eyes: No Pain, No Vision change, No Conjunctivae inflammation, No Eyelid inflammation, No Other, No Redness ENT: No Ear pain, No Ear discharge, No Nose pain, No Nose discharge, No Nose congestion, No Mouth pain, No Mouth swelling, No Throat pain, No Throat swelling, No Other Cardiovascular: No Chest Pain, No Palpitations, No Orthopnea, No Paroxysmal Noc. Dyspnea, No Edema, No Lt Headedness, No Other Respiratory: No Cough, No Dry, No Shortness of breath, No SOB with excertion, No Wheezing, No Hemoptysis, No Pleuritic Pain, No Sputum, No Other Gastrointestinal: No Nausea; Vomiting; No Abdominal Pain, No Diarrhea, No Constipation, No Melena, No Hematochezia, No Other Genitourinary: No Dysuria, No Frequency, No Incontinence, No Hematuria, No Retention, No Other Musculoskeletal: No other, No neck pain, No shoulder pain, No arm pain, No back pain, No hand pain, No leg pain, No foot pain Skin: No Rash, No Lesions, No Jaundice, No Bruising, No Other Objective Vitals Vital Signs Date Time Temp Pulse Resp B/P (MAP) Pulse Ox O2 Delivery O2 Flow Rate FiO2 08/05/24 09:00 97.4 83 18 138/83 (101) 97 97.4 08/04/24 20:00 Room Air* 0 21 Intake/Output Intake and Output 08/05/24 07:00 Intake Total 1770 ml Output Total 600 ml Balance 1170 ml Intake Oral 1520 ml IV Total 250 ml Output Urine Total 600 ml # Voids 3 General Appearance: Alert, Oriented X3, Cooperative, No acute distress Lungs: Clear to auscultation, Normal air movement Cardiovascular: Regular rate, Normal S1, Normal S2 Abdomen: Normal bowel sounds, Soft, No tenderness Extremities: No edema Medications Current Medications Medications Dose Ordered Sig/Ann Marie Route Start Time Stop Time Status Last Admin Dose Admin Pantoprazole Sodium 40 mg BID IV 08/02/24 22:00 08/05/24 09:09 40 MG Hydralazine HCl 10 mg Q6HP PRN IV 08/02/24 21:00 Atorvastatin Calcium 20 mg HS PO 08/02/24 22:00 08/04/24 23:37 20 MG Levetiracetam 100 ml @ 400 mls/hr BID IV 08/02/24 22:00 08/05/24 09:09 400 MLS/HR Sodium Chloride 1,000 ml @ 60 mls/hr [id number] IV 08/02/24 21:00 08/04/24 23:00 60 MLS/HR Acetaminophen/ Hydrocodone Bitart 1 tab Q4HP PRN PO 08/02/24 21:00 Ondansetron HCl 4 mg Q4HP PRN IV 08/02/24 21:00 Docusate Sodium 100 mg BIDPRN PRN PO 08/02/24 21:00 Acetaminophen 650 mg Q6HP PRN PO 08/02/24 21:00 Nitroglycerin 0.4 mg Q5MINP PRN SL 08/02/24 23:00 Morphine Sulfate 2 mg Q30M PRN IV 08/02/24 23:00 Sucralfate 1 gm QID@0600,1130,1700,2200 PO 08/03/24 11:30 08/05/24 06:07 1 GM Laboratory Results Laboratory Tests 08/05/24 06:15 Chemistry Test 08/05/24 06:15 Albumin 3.5 g/dL (3.2-4.8) Calcium Level 10.0 mg/dL (8.7-10.4) Magnesium Level 1.9 mg/dL (1.6-2.6) Total Protein 6.3 g/dL (5.7-8.2) LFT Test 08/05/24 06:15 Alanine Aminotransferase (ALT) 16 U/L (7-40) Alkaline Phosphatase 218 U/L (46-116) H Aspartate Amino Transferase (AST) 15 U/L (13-40) Total Bilirubin 0.3 mg/dL (0.2-1.0) Assessment/Plan Assessment/Plan Upper GI bleed Acute anemia due to blood loss Hypokalemia Hypertension Dyslipidemia Possible history of seizures Plan Patient is status post transfusion 2 units RBCs Clear liquid diet GI consult IV Protonix Sucralfate p.o. Monitor closely IV fluids Monitor closely and the rest of the management will depend on the hospital course Full code Advance directives discussed for 20 minutes Not stable for transfer 08/04/2024: Hemoglobin is stable at 7.1 , monitor Hypokalemia: Potassium 3.2 , replace IV Hypomagnesemia: Magnesium 1.5, replace IV GI bleed: EGD today Seizures: Continue Keppra Monitor closely Not stable for transfer 08/05/2024: Hemoglobin stable at 7.2 Gastric mass with ulcer, possible malignancy, status post biopsy, pending Anemia due to GI bleed History of seizures The plan is to transfer the patient to [facility] for transfer Monitor the hemoglobin and transfuse as needed Discussed with the at the bedside Plan discussed with: Patient, Spouse My Orders Orders - KARMA BERKOWITZ MD Procedure Category Date Status Time * Sole Polisher CONS 08/05/24 Transmitted Consult Date of Service: August 05, 2024 Billing Provider: KARMA BERKOWITZ MD Common Visit Codes: [id number] INP/OBS CARE(HIGH) KARMA BERKOWITZ MD August 05, 2024 10:50
[2024-08-05] MEDS: hydrALAZINE HCL 20 MG/ML VL IV PRN (18:13)
--- NOTE | 2024-08-05 20:42 | DVHPN2 ---
Progress Note - Dictate Date Seen: August 05, 2024 Medical Necessity Reason Pt with a Central, PICC or Fol: No Subjective No new complaints Hb stable at 7.2 vital signs Vital Sign Date Time Temp Pulse Resp B/P (MAP) Pulse Ox O2 Delivery O2 Flow Rate FiO2 08/05/24 18:13 165/78 08/05/24 17:00 97.4 91 18 96 97.4 08/05/24 08:00 Room Air* 0 21 Total Intake and Output 08/04/24 08/04/24 08/05/24 15:00 23:00 07:00 Intake Total 1370 ml 400 ml Output Total 600 ml Balance 1370 ml -200 ml medications Current Medications Medications Dose Ordered Sig/Ann Marie Route Start Time Stop Time Status Last Admin Dose Admin Pantoprazole Sodium 40 mg BID IV 08/02/24 22:00 08/05/24 09:09 40 MG Hydralazine HCl 10 mg Q6HP PRN IV 08/02/24 21:00 08/05/24 18:13 10 MG Atorvastatin Calcium 20 mg HS PO 08/02/24 22:00 08/04/24 23:37 20 MG Levetiracetam 100 ml @ 400 mls/hr BID IV 08/02/24 22:00 08/05/24 09:09 400 MLS/HR Sodium Chloride 1,000 ml @ 60 mls/hr [id number] IV 08/02/24 21:00 08/05/24 15:21 60 MLS/HR Acetaminophen/ Hydrocodone Bitart 1 tab Q4HP PRN PO 08/02/24 21:00 Ondansetron HCl 4 mg Q4HP PRN IV 08/02/24 21:00 Docusate Sodium 100 mg BIDPRN PRN PO 08/02/24 21:00 Acetaminophen 650 mg Q6HP PRN PO 08/02/24 21:00 Nitroglycerin 0.4 mg Q5MINP PRN SL 08/02/24 23:00 Morphine Sulfate 2 mg Q30M PRN IV 08/02/24 23:00 Sucralfate 1 gm QID@0600,1130,1700,2200 PO 08/03/24 11:30 08/05/24 17:09 1 GM objective General Appearance: Alert, Oriented X3, Cooperative, No acute distress HEENT: Atraumatic, PERRLA, EOMI, Mucous membr. moist/pink Respiratory: Clear to auscultation, Normal air movement Cardiovascular: Regular rate, Normal S1, Normal S2, No murmurs Abdominal: Normal bowel sounds, Soft, No tenderness, No hepatospenomegaly, No masses Extremities: No clubbing, No cyanosis, No edema, Normal pulses, No tenderness/swelling Skin: No rashes, No breakdown, No significant lesion Neuro: Normal speech, Normal tone, Sensation intact, Cranial nerves 3-12 NL, Reflexes 2+, Other (Generalized weakness) Psych/Mental Status: Mental status NL, Mood NL laboratory and microbiology Laboratory Tests 08/05/24 06:15 Test 08/05/24 06:15 Range/Units Serum Glucose 136 H 74-106 mg/dL Problems(with codes): (1) Mass of stomach (2) Musculoskeletal chest pain (3) Chest pain (4) Generalized weakness (5) Gastrointestinal hemorrhage (6) Severe anemia (7) GI bleed Prognosis Plan Protonix 40 mg IV q.12 hours Carafate 1 g 4 times a day Full liquid diet Await final pathology results Possible transfer to higher level of care possibly to [facility] for further management Dietary Evaluation Review Comments: 1) Encourage optimal PO intake 2) Advance to cardiac diet when medically feasible, pending [employer] [facility] approval 3) Follow-up with gastroenterology 4) Continue to monitor I&O, labs, and skin integrity Expected Outcomes/Goals: 1) appetite and labs to improve 2) diet to advance 3) f/u in 2-3 days Plan discussed with: Patient CC Plasma Assessment Blood Product Administration S: 2250 ZIA BRADY MD August 05, 2024 20:42
--- NOTE | 2024-08-12 15:31 | DVHDS2 ---
Discharge Summary Date of Admission August 02, 2024 at 22:52 Date of Discharge: August 05, 2024 Labs/Diagnostic Data: Laboratory Results Test 08/05/24 06:15 08/04/24 05:54 08/02/24 19:03 White Blood Count 3.3 10^3/uL (4.4-10.8) Red Blood Count 2.79 10^6/uL (4.0-5.20) Hemoglobin 7.2 g/dL (12.2-16.2) Hematocrit 22.6 % (36.0-46.0) Mean Corpuscular Volume 81.1 fL (80.0-100.0) Mean Corpuscular Hemoglobin 26.0 pg (28.0-32.0) Mean Corpuscular Hemoglobin Concent 32.0 g/dL (32.0-36.0) Red Cell Distribution Width 20.0 % (11.8-14.3) Platelet Count 412 10^3/uL (140-450) Mean Platelet Volume 6.4 fL (6.9-10.8) Neutrophils (%) (Auto) 72.0 % (37.0-80.0) Lymphocytes (%) (Auto) 21.6 % (10.0-50.0) Monocytes (%) (Auto) 6.0 % (0.0-12.0) Eosinophils (%) (Auto) 0.2 % (0.0-7.0) Basophils (%) (Auto) 0.2 % (0.0-2.0) Neutrophils # (Auto) 2.4 10 ^3/uL (1.6-8.6) Lymphocytes # (Auto) 0.7 10 ^3/uL (0.4-5.4) Monocytes # (Auto) 0.2 10 ^3/uL (0-1.3) Eosinophils # (Auto) 0 10 ^3/uL (0-0.8) Basophils # (Auto) 0 10 ^3/uL (0-0.2) Nucleated Red Blood Cells 1.2 % Sodium Level 140 mmol/L (136-145) Potassium Level 3.8 mmol/L (3.5-5.1) Chloride Level 107 mmol/L (98-107) Carbon Dioxide Level 23 mmol/L (20-31) Anion Gap 10 (5-15) Blood Urea Nitrogen 7 mg/dL (9-23) Creatinine 0.47 mg/dL (0.550-1.02) Glomerular Filtration Rate Calc 94 mL/min (>90) BUN/Creatinine Ratio 14.9 (10.0-20.0) Serum Glucose 136 mg/dL (74-106) Calcium Level 10.0 mg/dL (8.7-10.4) Magnesium Level 1.9 mg/dL (1.6-2.6) Total Bilirubin 0.3 mg/dL (0.2-1.0) Aspartate Amino Transferase (AST) 15 U/L (13-40) Alanine Aminotransferase (ALT) 16 U/L (7-40) Alkaline Phosphatase 218 U/L (46-116) Total Protein 6.3 g/dL (5.7-8.2) Albumin 3.5 g/dL (3.2-4.8) Platelet Estimate Increased Anisocytosis (manual) Slight Prothrombin Time 10.9 sec (9.3-11.8) Prothrombin Time INR 1.03 (0.9-1.15) Activated Partial Thromboplast Time 23.6 SEC (24.5-34.5) Triglycerides Level 81 mg/dL (< 150) Cholesterol Level 85 mg/dL (< 200) LDL Cholesterol 27 mg/dL (< 100) HDL Cholesterol 39 mg/dL (40-59) Thyroid Stimulating Hormone (TSH) 0.29 uIU/mL (0.55-4.78) Troponin I High Sensitivity 12 ng/L (</=34) Other Laboratory Tests 08/05/24 06:15 Brief Hx & Hospital Course: Final diagnoses: Upper GI bleed Acute anemia due to blood loss Hypokalemia Hypertension Dyslipidemia Possible history of seizures Gastric mass with ulcer rule out malignancy 83-year-old female with a history of hypertension and hypercholesterolemia came with hematemesis and black stools for about a week with no abdominal pain Her hemoglobin on admission was 4.1, she was given 2 units of packed RBCs which elevated her hemoglobin to 7.1 She was seen by GI and had an EGD which showed a large 5-6 cm also later area in the angularis and distal body of the stomach with necrosis and raised edges which felt hard and firm suspicious for gastric malignancy with gastroparesis and retained gastric food contents Biopsies were done The patient belongs to [facility] and therefore she was transferred is a year for kidney today with T of care in his stable condition At the time of discharge, the pathology was still pending At the time of this dictation the pathology is still pending regarding the biopsy of the gastric tumor The patient was transferred in his stable condition Condition at Discharge: Stable Final Diagnosis/Problems List GI bleed Gastric mass with ulcer rule out malignancy Discharge Disposition: Acute Care Facility SNF Discharge Will this Physician continue t: No Discharge Instruct/Medications Diet: See Comment Diet comment: Full liquids Activity: No Restrictions, As Tolerated Follow Up/Referral: Marquis mejía Medications: See the med rec Discharge Statement: "Patient was advised to return to the ER or call 911 if any headaches, dizziness, shortness of breath, chest pain, abdominal pain, bleeding, fevers, or worsening of medical condition. Patient was counseled about treatment plan, medications, possible side effects, patientverbalized understanding. All questions were answered to the best of my ability. This discharge took greater then 30 minutes in planning, reviewing documentation, counseling the patient, and discussing with other team members." ASSESSMENT ASSESSMENT Assessment GI bleed Gastric mass with ulcer rule out malignancy Date of Service: August 05, 2024 Billing Provider: KARMA BERKOWITZ MD Common Visit Codes: [id number] DISCH DAY >30min KARMA BERKOWITZ MD August 12, 2024 15:31
== END 2024-08-05 23:25 | disposition short-term general hospital (02) | DRG 378 ==
LOC: ER 18:42 → OVERFLOW 22:52 → TELE-CENTR 08-03 01:50
PROVIDERS: ADMIT Internal Medicine Geriatric Medicine; ATTEND Internal Medicine Geriatric Medicine
PROC: 0DB68ZX Excision of Stomach, Via Natural or Artificial Opening Endoscopic, Diagnostic (ICD-10-PCS; 2024-08-04)
PROC: 30233N1 Transfusion of Nonautologous Red Blood Cells into Peripheral Vein, Percutaneous Approach (ICD-10-PCS; 2024-08-04)
PROC: 0DB98ZX Excision of Duodenum, Via Natural or Artificial Opening Endoscopic, Diagnostic (ICD-10-PCS; principal; 2024-08-04 11:00)
DX: K25.0 Acute gastric ulcer with hemorrhage (principal); D62 Acute posthemorrhagic anemia; K29.71 Gastritis, unspecified, with bleeding; E87.6 Hypokalemia; I10 Essential (primary) hypertension; E78.00 Pure hypercholesterolemia, unspecified; K31.84 Gastroparesis; K59.00 Constipation, unspecified; Z90.710 Acquired absence of both cervix and uterus; Z83.3 Family history of diabetes mellitus; Z79.899 Other long term (current) drug therapy; R19.00 Intra-abdominal and pelvic swelling, mass and lump, unspecified site
CPT/HCPCS: 36415; 43239; 71045; 74177; 80053; 80061; 83735; 84443; 84484; 85025; 85610; 85730; 86850; 86900; 86901; 86920; 93005; 96361; 96374; G0378; J1100; J2250; J2470; J2704

== ENCOUNTER 2024-09-21 09:10 | Emergency (ER) | payer MEDICARE, OTHER ==
[~2024-09-21] VITALS: Ht 157.5 cm; Wt 60.0 kg
[~2024-09-21 09:10] MED LIST: ATOR20TA50 PO; FURO20TA4 PO; LEVE500T3 PO; LOSA-535 PO
--- NOTE | 2024-09-21 09:22 | ED.PDOC ---
History of Present Illness HPI Comments 83-year-old female with PMHx HTN, HLD, Anxiety Disorder brought in by EMS presents with a chief complaint of hip pain s/p mechanical fall at home. Patient states that she was attempting to get into her wheelchair but fell after losing her balance. Patient states that she did hit her head, but did not lose co nsciousness. Patient has some shortening and external rotation to the left leg. Patient is not on blood thinners. Blood sugar was 130. Chief Complaint: Fall Injury Time Seen by MD: 09:15 Primary Care Provider: BARBARA Ayala Notes: Medications, Allergies Allergies: Coded Allergies: NO KNOWN ALLERGIES (Unverified , 03/17/24) Home Meds Reported Medications Levetiracetam (Levetiracetam) 500 Mg Tab, 1 TAB PO BID 08/03/24 Losartan Potassium (Losartan Potassium) 100 Mg Tab, 1 TAB PO DAILY 08/03/24 Furosemide (Furosemide) 20 Mg Tab, 1 TAB PO DAILY 08/03/24 Atorvastatin Calcium (ATORVASTATIN CALCIUM) 20 Mg Tab, 1 TAB PO DAILY 08/03/24 Information Source: Patient, Emergency Med Personnel Mode of Arrival: EMS Severity: Moderate Timing: Minutes Duration: Since onset Prehospital treatment: [facility] Past Medical History PAST MEDICAL HISTORY: Anxiety, High Lipids, HTN Surgical History: Hysterectomy [employer] History: Denies all [employer]ATOR Hx Family History Family History: Reviewed,noncontributory to illness Social History Smoker: Non-Smoker Alcohol: Denies ETOH Use Drugs: Denies Drug Use Lives In: Home Constitutional: denies: chills, diaphoresis, fatigue, fever, malaise, sweats, weakness, others EENTM: denies: blurred vision, double vision, ear bleeding, ear discharge, ear drainage, ear pain, ear ringing, eye pain, eye redness, hearing loss, mouth pain, mouth swelling, nasal discharge, nose bleeding, nose congestion, nose pain, photophobia, tearing, throat pain, throat swelling, voice changes, others Respiratory: denies: cough, hemoptysis, orthopnea, SOB at rest, shortness of breath, SOB with excertion, stridor, wheezing, others Cardiovascular: denies: chest pain, dizzy spells, diaphoresis, Dyspnea on exertion, edema, irregular heart beat, left arm pain, lightheadedness, palpitations, PND, syncope, others Gastrointestinal: denies: abdomen distended, abdominal pain, blood streaked bowels, constipated, diarrhea, dysphagia, difficulty swallowing, hematemesis, melena, nausea, poor appetite, poor fluid intake, rectal bleeding, rectal pain, vomiting, others Genitourinary: denies: abnormal vagina bleeding, burning, dyspareunia, dysuria, flank pain, frequency, hematuria, incontinence, pain, , vagina discharge, urgency, others Neurological: denies: dizziness, fainting, headache, left sided numbness, left sided weakness, numbness, paresthesia, pre-existing deficit, right sided numbness, right sided weakness, seizure, speech problems, tingling, tremors, weakness, others Musculoskeletal: reports: joint pain, muscle pain; denies: back pain, gout, joint swelling, muscle stiffness, neck pain, others Integumetry: denies: bruises, change in color, change in hair/nails, dryness, laceration, lesions, lumps, rash, wounds, others Allergic/Immunocompromised: denies: Difficulty Healing, Frequent Infections, Hives, Itching, others Hematologic/Lymphatic: denies: anemia, blood clots, easy bleeding, easy bruising, swollen glands, others Endocrine: denies: excessive hunger, excessive sweating, excessive thirst, excessive urination, flushing, intolerance to cold, intolerance to heat, unexplained weight gain, unexplained weight loss, others Psychiatric: denies: anxiety, bipolar disorder, depression, hopeless, panic disorder, schizophrenia, sleepless, suicidal, others All Other Systems: Reviewed and Negative Physical Exam General Appearance: Moderate Distress, Normal HEENT: Normal ENT Inspection, Pharynx Normal, TMs Normal Neck: Full Range of Motion, Non-Tender, Normal, Normal Inspection Respiratory: Chest Non-Tender, Lungs Clear, No Accessory Muscle Use, No Respiratory Distress, Normal Breath Sounds Cardiovascular: No Edema, No JVD, No Murmur, No Gallop, Normal Peripheral Pulses, Regular Rate/Rhythm Breast Exam: Deferred Gastrointestinal: No Organomegaly, Non Tender, No Pulsatile Mass, Normal Bowel Sounds, Soft Genitalia: Deferred Pelvic: Deferred Rectal: Deferred Extremities: Decreased range of motion (Left lower extremity), No calf te nderness, Normal capillary refill, No pedal edema Musculoskeletal : Apperance: Normal Neurologic: Alert, stock unloader II-XII nml as Tested, No Motor Deficits, Normal Affect, Normal Mood, No Sensory Deficits Cerebellar Function: NOT DONE Reflexes: NOT DONE Skin: Dry, Normal Color, Warm Peripheral Pulses: 3+ Radial (R), 3+ Radial (L) Lymphatic: No Adenopathy Was a procedure done? Was a procedure done?: No Differential Dx Considerations may include: Pelvic fracture X-Ray, Labs, Meds, VS Vital Signs Date Time Temp Pulse Resp B/P (MAP) Pulse Ox O2 Delivery O2 Flow Rate FiO2 09/21/24 12:00 86 21 106/64 (78) 95 09/21/24 10:08 86 20 95 Room Air* 0 21 09/21/24 10:07 97.9 86 20 109/67 (81) 95 97.9 09/21/24 09:16 97.9 92 17 110/60 (77) 94 97.9 Lab Test 09/21/24 09:50 Range/Units White Blood Count 8.1 4.4-10.8 10^3/uL Red Blood Count 3.63 L 4.0-5.20 10^6/uL Hemoglobin 8.8 L 12.2-16.2 g/dL Hematocrit 26.7 L 36.0-46.0 % Mean Corpuscular Volume 73.8 L 80.0-100.0 fL Mean Corpuscular Hemoglobin 24.3 L 28.0-32.0 pg Mean Corpuscular Hemoglobin Concent 33.0 32.0-36.0 g/dL Red Cell Distribution Width 20.4 H 11.8-14.3 % Platelet Count 403 140-450 10^3/uL Mean Platelet Volume 7.1 6.9-10.8 fL Neutrophils (%) (Auto) 80.9 H 37.0-80.0 % Lymphocytes (%) (Auto) 7.8 L 10.0-50.0 % Monocytes (%) (Auto) 10.0 0.0-12.0 % Eosinophils (%) (Auto) 0.7 0.0-7.0 % Basophils (%) (Auto) 0.6 0.0-2.0 % Neutrophils # (Auto) 6.5 1.6-8.6 10 ^3/uL Lymphocytes # (Auto) 0.6 0.4-5.4 10 ^3/uL Monocytes # (Auto) 0.8 0-1.3 10 ^3/uL Eosinophils # (Auto) 0.1 0-0.8 10 ^3/uL Basophils # (Auto) 0 0-0.2 10 ^3/uL Nucleated Red Blood Cells 0.1 % Sodium Level 129 L 136-145 mmol/L Potassium Level 2.6 L 3.5-5.1 mmol/L Chloride Level 89 L 98-107 mmol/L Carbon Dioxide Level 28 20-31 mmol/L Anion Gap 12 5-15 Blood Urea Nitrogen 17 9-23 mg/dL Creatinine 0.87 0.550-1.02 mg/dL Glomerular Filtration Rate Calc 66 >90 mL/min BUN/Creatinine Ratio 19.5 10.0-20.0 Serum Glucose 97 74-106 mg/dL Calcium Level 11.1 H 8.7-10.4 mg/dL Patient alert. Status post fall. Vitals stable. Answering questions. Was given pain medication. X-ray does show pelvic fracture. Potassium is low. Was given potassium. Sodium is low. Establish intravenous access. Was given fluids. EKG reviewed does not show any acute changes. Explained to the patient. Continue to monitor. [id number]. Time of 1ST Reevaluation: 09:45 Reevaluation 1ST: Unchanged Patient Education/Counseling: Diagnosis, Treatment, Need For Follow Up Family Education/Counseling: Diagnosis, Treatment, Need For Follow Up SEPSIS Sepsis Screen Physician Orders Urinalysis (09/21/24 09:32) Pelvis Ap (09/21/24 09:32) Potassium Effervesent Tab (Klor-Con/Ef) (09/21/24 13:30) Vital Signs Date Time Temp Pulse Resp B/P (MAP) Pulse Ox O2 Delivery O2 Flow Rate FiO2 09/21/24 12:00 86 21 106/64 (78) 95 09/21/24 10:08 86 20 95 Room Air* 0 21 09/21/24 10:07 97.9 86 20 109/67 (81) 95 97.9 09/21/24 09:16 97.9 92 17 110/60 (77) 94 97.9 Laboratory Tests Test 09/21/24 09:50 White Blood Count 8.1 10^3/uL (4.4-10.8) Departure 1 Departure Time of Disposition: 11:11 Impression: Primary Impression: Hyponatremia Additional Impressions: Hypokalemia Pelvic fracture Qualified Codes: S32.9XXA - Fracture of unspecified parts of lumbosacral spine and pelvis, initial encounter for closed fracture Disposition: ADMITTED INPATIENT Admit to: Med Surg Condition: Guarded Critical Care Note Critical Care Time?: Yes (90 min-critical care time only) Critical care comment: Pain control continue to monitor Stability Stability form required: No Heart Score Heart Score: Heart Score Response (Comments) Value History Slightly Suspicious 0 EKG Normal 0 Age >65 2 Risk Factors >3 or Hx ASHD 2 Troponin N/A 0 Total 4 I personally scribed for JARROD PERAZA MD ([email or web address]) on 09/21/24 at 09:22. Electronically submitted by Victor M Mendoza ([email or web address]). JARROD PERAZA MD Sep 21, 2024 09:22
[2024-09-21 10:08] VITALS: PULSE 86; RESP 20; O2SAT 95
[2024-09-21 10:14] LABS: Hemoglobin 8.8 g/dL (12.2-16.2); Lymphocytes # (auto) 0.6 10 ^3/uL (0.4-5.4); White Blood Cell 8.1 10^3/uL (4.4-10.8)
[2024-09-21 10:18] LABS: Basophils # (auto) 0 10 ^3/uL (0-0.2); Basophils % (auto) 0.6 % (0.0-2.0); Eosinophils # (auto) 0.1 10 ^3/uL (0-0.8); Eosinophils % (auto) 0.7 % (0.0-7.0); Hematocrit 26.7 % (36.0-46.0); Lymphocytes % (auto) 7.8 % (10.0-50.0); Mean Corpuscular Hemoglobin 24.3 pg (28.0-32.0); Mean Corpuscular Volume 73.8 fL (80.0-100.0); Monocytes # (auto) 0.8 10 ^3/uL (0-1.3); Neutrophils # (auto) 6.5 10 ^3/uL (1.6-8.6); Neutrophils % (auto) 80.9 % (37.0-80.0); Nucleated Red Blood Cells % 0.1 %; Platelet Count (auto) 403 10^3/uL (140-450); Red Blood Cells 3.63 10^6/uL (4.0-5.20); Red Cell Distribution Width 20.4 % (11.8-14.3)
[2024-09-21 10:25] LABS: Anion Gap 12 (5-15); Carbon Dioxide 28 mmol/L (20-31)
[2024-09-21 10:28] LABS: Calcium 11.1 mg/dL (8.7-10.4); Chloride 89 mmol/L (98-107); Potassium 2.6 mmol/L (3.5-5.1); Sodium 129 mmol/L (136-145)
[2024-09-21 10:31] LABS: BUN/Creatinine Ratio 19.5 (10.0-20.0); Blood Urea Nitrogen 17 mg/dL (9-23); Glucose 97 mg/dL (74-106)
--- NOTE | 2024-09-21 10:34 | DVH ---
XY PELVIS AP HISTORY: fx TECHNICAL DATA: Frontal view was obtained of the pelvis. COMPARISON: None FINDINGS: Possible non displaced fracture of the left lesser trochanter versus artifact. The sacroiliac joints appear normal. There is no abnormality of the symphysis pubis. The hip joint spaces are symmetric. Th e proximal femurs demonstrate no abnormality. IMPRESSION: Possible non displaced fracture of the left lesser trochanter versus artifact
[2024-09-21] MEDS: MORPHINE SULFATE INJ 2 MG/ml SYRG IV ONE (13:19)
[2024-09-21] MEDS: ONDANSETRON HCL 4 MG/2 ML VIAL IV ONE (13:19)
[2024-09-21] MEDS: POTASSIUM EFFERVESENT TAB 25 MEQ PO ONE (13:21)
[2024-09-21] MEDS: SODIUM CHLORIDE 0.9% 1,000 ML IV ONE ×2 (13:30→14:08)
[2024-09-21 17:20] LABS: Urine Bacteria FEW /hpf (None Seen); Urine Blood Negative /uL (Negative); Urine Clarity Clear (Clear); Urine Color Light-Yellow (Yellow); Urine Protein, UAD Negative (Negative); Urine Specific Gravity 1.009 (1.001-1.035); Urine Squamous Epithelial Cell FEW /hpf (<5); Urine Urobilinogen Normal (Negative); Urine WBC 3 /HPF (0-5)
[2024-09-21 17:40] VITALS: BP 104/37; PULSE 98; RESP 21; TEMP 97.7; O2SAT 96
== END 2024-09-21 11:10 | disposition short-term general hospital (02) ==
LOC: EDUNIT# 09:10 → ER 09:10 → EDBD 09:10 → ER 11:10
DX: S32.89XA Fracture of other parts of pelvis, initial encounter for closed fracture (principal); E78.5 Hyperlipidemia, unspecified; E87.1 Hypo-osmolality and hyponatremia; E87.6 Hypokalemia; M79.662 Pain in left lower leg; I10 Essential (primary) hypertension; Z79.899 Other long term (current) drug therapy; Z90.710 Acquired absence of both cervix and uterus; W18.39XA Other fall on same level, initial encounter; Y93.89 Activity, other specified; Y92.098 Other place in other non-institutional residence as the place of occurrence of the external cause; Y99.8 Other external cause status
CPT/HCPCS: 36415; 72170; 80048; 81001; 85025; 96361; 96374; 96375; 99285; J2270; J2405; J7030